=== PATIENT | male | born 1955 | race Caucasian/White ===

== ENCOUNTER 2019-02-01 15:49 | Inpatient (IN) | payer OTHER ==
[~2019-02-01] VITALS: Ht 200.7 cm; Wt 120.8 kg
[2019-02-01] MEDS ORDERED: ASPIRIN CHEWABLE 81 MG TABLET. PO ONE (16:15)
--- NOTE | 2019-02-01 16:35 | EKG ---
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
--- NOTE | 2019-02-01 16:35 | RAD ---
EXAM: Chest, 2 views. HISTORY: Chest pain. Smoking history. COMPARISON: None. FINDINGS: 2 views of the chest are obtained. There are coarse likely chronic interstitial markings within both lungs. There is no consolidation, pleural effusion or pneumothorax. There is suspected bilateral basilar atelectasis or scarring. The heart is normal in size. IMPRESSION: Chronic appearing coarse interstitial markings with suspected basilar atelectasis or scarring. No acute pulmonary finding. Electronically signed by: Wendy Mills MD (02/01/2019 4:32 PM) [place] [id number]
[2019-02-01 17:26] LABS: BASO % 1 % (0-3); EOS # 0.1 x10^3/uL (0.0-0.7); EOS % 1 % (0-3); HEMATOCRIT 42.1 % (39.0-53.0); HEMOGLOBIN 14.2 g/dL (13.0-17.5); LYMPH # 1.3 x10^3/uL (1.0-4.8); LYMPH % 25 % (24-48); MEAN CORPUSCULAR HEMOGLOBIN 32 pg (25-35); MEAN CORPUSCULAR HGB CONC 34 g/dL (31-37); MEAN CORPUSCULAR VOLUME 94 fL (79-100); MONO # 0.4 x10^3/uL (0.0-1.1); MONO % 8 % (0-9); NEUT # 3.5 x10^3uL (1.8-7.7); NEUT % 66 % (31-73); PLATELET COUNT 239 x10^3/uL (140-400); RED BLOOD COUNT 4.46 x10^6/uL (4.30-5.70); RED CELL DISTRIBUTION WIDTH 14.5 % (11.5-14.5); WHITE BLOOD COUNT 5.4 x10^3/uL (4.0-11.0)
[2019-02-01 17:41] LABS: CALCIUM 9.3 mg/dL (8.5-10.1); CREATININE 0.8 mg/dL (0.7-1.3); GFR 97.3; POTASSIUM 4.2 mmol/L (3.5-5.1)
[2019-02-01 17:48] LABS: ALBUMIN 3.8 g/dL (3.4-5.0); TOTAL BILIRUBIN 0.8 mg/dL (0.2-1.0); TOTAL PROTEIN 7.6 g/dL (6.4-8.2)
--- NOTE | 2019-02-01 17:55 | PHYS DOC ---
Past Medical History Past Medical History: Diabetes-Type II, Hypertension, Other Additional Past Medical Histor: BPH Past Surgical History: Appendectomy, Other Additional Past Surgical Histo: cataract surgery, hernia repair Additional Information: quit smoking cigarettes 6 years ago, currently "vapes" Alcohol Use: Occasionally Drug Use: None Adult General Chief Complaint Chief Complaint: CHEST PAIN HPI HPI Patient is a 63 year old male who presents with complaining of abnormal EKG up to not primary care physician office today. Patient states he had a few episodes of substernal aching chest pain shortness of breath without the palpitation, radiation of pain, nausea, dizziness and generalized weakness, cough and fever and chills for the last 1 week and seen by his primary care physician as his routine appointment today and had abnormal EKG and sent to ER. Primary care physician reported that patient had new-onset of atrial flutter patient with rate of 60s with 3 seconds pause in his EKG. And had this same immobilization. He'll restrict airplane problem on December 23 and complaining of mild discomfort feeling in left leg. Patient had history of hypertension, dyslipidemia, diabetes mellitus and family history of coronary artery disease and denies history of COPD and previous arrhythmia. Review of Systems Review of Systems Constitutional: Denies fever or chills [] Eyes: Denies change in visual acuity, redness, or eye pain [] HENT: Denies nasal congestion or sore throat [] Respiratory: Denies cough, reports shortness of breath [] Cardiovascular: No additional information not addressed in HPI [] GI: Denies abdominal pain, nausea, vomiting, bloody stools or diarrhea [] : Denies dysuria or hematuria [] Musculoskeletal: Denies back pain or joint pain [] Integument: Denies rash or skin lesions [] Neurologic: Denies headache, focal weakness or sensory changes [] Endocrine: Denies polyuria or polydipsia [] All other systems were reviewed and found to be within normal limits, except as documented in this note. Current Medications Current Medications Current Medications Medications (Trade) Dose Ordered Sig/Linda Start Time Stop Time Status Last Admin Dose Admin Aspirin (Children'S Aspirin) 324 mg 1X ONCE 02/01/19 16:15 02/01/19 16:53 DC 02/01/19 17:27 243 MG Info (CONTRAST GIVEN -- Rx MONITORING) 1 each PRN DAILY PRN 02/01/19 18:30 02/03/19 18:29 Iohexol (Omnipaque 350 Mg/ml) 100 ml 1X ONCE 02/01/19 18:30 02/01/19 18:31 DC 02/01/19 18:24 100 ML Allergies Allergies Allergies Coded Allergies Type Severity Reaction Last Updated Verified Penicillins Allergy Intermediate 02/01/19 Yes Physical Exam Physical Exam Constitutional: Well developed, well nourished, no acute distress, non-toxic appearance. [] HENT: Normocephalic, atraumatic Eyes: PERRLA, EOMI, conjunctiva normal, no discharge. [] Neck: Normal range of motion, no tenderness, supple, no stridor. [] Cardiovascular: Irregularly irregular rhythm without tachycardia, no murmur [] Lungs & Thorax: Bilateral breath sounds clear to auscultation [] Abdomen: Bowel sounds normal, soft, no tenderness, no masses, no pulsatile masses. [] Skin: Warm, dry, no erythema, no rash. [] Back: No tenderness, no CVA tenderness. [] Extremities: No tenderness, no cyanosis, no clubbing, ROM intact, no edema. [] Neurologic: Alert and oriented X 3, normal motor function, normal sensory function, no focal deficits noted. [] Psychologic: Affect normal, judgement normal, mood normal. [] Current Patient Data Vital Signs Vital Signs Date Time Temp Pulse Resp B/P (MAP) Pulse Ox O2 Delivery O2 Flow Rate FiO2 02/01/19 15:58 97.7 66 20 155/74 (101) 96 Room Air 97.7 Lab Values Laboratory Tests Test 02/01/19 17:17 02/01/19 17:45 White Blood Count 5.4 x10^3/uL (4.0-11.0) Red Blood Count 4.46 x10^6/uL (4.30-5.70) Hemoglobin 14.2 g/dL (13.0-17.5) Hematocrit 42.1 % (39.0-53.0) Mean Corpuscular Volume 94 fL (79-100) Mean Corpuscular Hemoglobin 32 pg (25-35) Mean Corpuscular Hemoglobin Concent 34 g/dL (31-37) Red Cell Distribution Width 14.5 % (11.5-14.5) Platelet Count 239 x10^3/uL (140-400) Neutrophils (%) (Auto) 66 % (31-73) Lymphocytes (%) (Auto) 25 % (24-48) Monocytes (%) (Auto) 8 % (0-9) Eosinophils (%) (Auto) 1 % (0-3) Basophils (%) (Auto) 1 % (0-3) Neutrophils # (Auto) 3.5 x10^3uL (1.8-7.7) Lymphocytes # (Auto) 1.3 x10^3/uL (1.0-4.8) Monocytes # (Auto) 0.4 x10^3/uL (0.0-1.1) Eosinophils # (Auto) 0.1 x10^3/uL (0.0-0.7) Basophils # (Auto) 0.0 x10^3/uL (0.0-0.2) Sodium Level 147 mmol/L (136-145) H Potassium Level 4.2 mmol/L (3.5-5.1) Chloride Level 107 mmol/L (98-107) Carbon Dioxide Level 30 mmol/L (21-32) Anion Gap 10 (6-14) Blood Urea Nitrogen 13 mg/dL (8-26) Creatinine 0.8 mg/dL (0.7-1.3) Estimated GFR (Cockcroft-Gault) 97.3 BUN/Creatinine Ratio 16 (6-20) Glucose Level 120 mg/dL (70-99) H Calcium Level 9.3 mg/dL (8.5-10.1) Magnesium Level 2.0 mg/dL (1.8-2.4) Total Bilirubin 0.8 mg/dL (0.2-1.0) Aspartate Amino Transferase (AST) 28 U/L (15-37) Alanine Aminotransferase (ALT) 46 U/L (16-63) Alkaline Phosphatase 49 U/L (46-116) Creatine Kinase 60 U/L (39-308) Troponin I Quantitative < 0.017 ng/mL (0.000-0.055) YH-Kii-S-Type Natriuretic Peptide 706 pg/mL (0-124) H Total Protein 7.6 g/dL (6.4-8.2) Albumin 3.8 g/dL (3.4-5.0) Albumin/Globulin Ratio 1.0 (1.0-1.7) Lipase 100 U/L (73-393) Prothrombin Time 13.5 SEC (11.7-14.0) Prothrombin Time INR 1.1 (0.8-1.1) D-Dimer (Parisa) 0.80 ug/mlFEU (0.00-0.50) H Laboratory Tests 02/01/19 17:17 Laboratory Tests 02/01/19 17:17 EKG EKG EKG interpreted by me. EKG at 1559 showed atrial fibrillation at rate of 62, nonspecific intraventricular block, poor R-wave progress in anteroseptal leads, no acute ST and T-wave abnormalities. Radiology/Procedures Radiology/Procedures [facility] [address] [place] [address] IMAGING REPORT Signed PATIENT: LESLIE WOMACK ACCOUNT: [id number] : 1955 LOCATION: ER AGE: 63 SEX: M EXAM STATUS: PRE ER ORD. PHYSICIAN: JON BETTS MD REASON: chest pain PROCEDURE: PORTABLE CHEST 1V EXAM: Chest, 2 views. HISTORY: Chest pain. Smoking history. COMPARISON: None. FINDINGS: 2 views of the chest are obtained. There are coarse likely chronic interstitial markings within both lungs. There is no consolidation, pleural effusion or pneumothorax. There is suspected bilateral basilar atelectasis or scarring. The heart is normal in size. IMPRESSION: Chronic appearing coarse interstitial markings with suspected basilar atelectasis or scarring. No acute pulmonary finding. Electronically signed by: Wendy Bean MD (02/01/2019 4:32 PM) [place] [id number] DICTATED and SIGNED BY: WENDY BEAN MD DATE: 02/01/19 1631 Course & Med Decision Making Course & Med Decision Making Pertinent Labs and Imaging studies reviewed. (See chart for details) Evaluation of patient in ER showed 63-year-old male patient with episodes of chest pain or shortness of breath for one week and is sent immobilization. EKG showed atrial fibrillation without acute ST and T-wave abnormalities. Patient had d-dimer of 0.[address] of chest for PE is pending. Dr. Montague accepted admission at 1737. Dragon Disclaimer Dragon Disclaimer This electronic medical record was generated, in whole or in part, using a voice recognition dictation system. Departure Departure Impression: Primary Impression: Acute chest pain Additional Impressions: New onset atrial fibrillation Elevated d-dimer Disposition: ADMITTED INPATIENT (at 1737) Admitting Physician: Valeriano Montague (accepted admission at 1737) Condition: STABLE Referrals: VALERIANO MONTAGUE MD (PCP) Problem Qualifiers JON BETTS MD Feb 01, 2019 17:55
[2019-02-01 18:06] LABS: PROTHROMBIN TIME PATIENT 13.5 SEC (11.7-14.0)
[2019-02-01 18:09] LABS: D-DIMER 0.8 ug/mlFEU (0.00-0.50)
[2019-02-01] MEDS ORDERED: IOHEXOL 350 MG/ML 100 ML VIAL. IV ONE (18:30)
[2019-02-01] MEDS ORDERED: CONTRAST GIVEN. MC PRN (18:30)
[2019-02-01] MEDS ORDERED: ANTI-COAG MONITOR BY PHARMACY. MC PRN (19:00)
[2019-02-01] MEDS ORDERED: HEPARIN for IV BOLUS 10,000 UNIT/10 ML VIAL. IV PRN ×2 (19:00)
[2019-02-01] MEDS ORDERED: HEPARIN for IV BOLUS 10,000 UNIT/10 ML VIAL. IV ONE (19:00)
--- NOTE | 2019-02-01 19:02 | RAD ---
Chest CTA History: Chest pain, shortness of breath Technique: After bolus of intravenous contrast, CT imaging was performed of the chest. Multiplanar reconstruction images to include MIP reconstruction images are submitted. Exposure: One or more of the following individualized dose reduction techniques were utilized for this examination: 1. Automated exposure control 2. Adjustment of the mA and/or kV according to patient size 3. Use of iterative reconstruction technique. Comparison: None Findings: [ ] There is a more focal pulmonary embolism right lower lobe, also some likely tiny foci more peripherally. There are also right upper lobe pulmonary emboli extending to the right main pulmonary artery. There are likely some tiny peripheral left lower lobe pulmonary emboli. There is very small right pleural effusion. There is no pneumothorax. There is reflux of contrast into the hepatic veins. There is some coronary calcification. Thoracic aortic caliber is within normal limits without intraluminal flap. There is right hilar node about 1.3 cm short axis dimension. There is small 0.4 cm right upper lobe nodule axial image 35 series 3. There is hepatic steatosis. Impression: 1. There are pulmonary emboli greater on the right. There is very small right pleural effusion. 2. There is hepatic steatosis. 3. There is coronary calcification. 4. There is nonspecific enlarged right hilar node. 5. There is reflux of contrast into the hepatic veins which is nonspecific, can be associated with heart failure although the heart is not enlarged. FOR INTERNAL CODING PURPOSES Critical result: Findings discussed with VALERIANO HATFIELD at 02/01/2019 6:50 PM. RESULT CODE: (C) Electronically signed by: Luca Medina MD (02/01/2019 6:59 PM) [employer]
[2019-02-01] MEDS: HEPARIN 25,000UTS/500ML PREMIX 500 ML IV PRN (19:15)
[2019-02-01 20:55] VITALS: BP 180/77
[2019-02-01] MEDS ORDERED: AMOX250C PO (21:07)
[2019-02-01] MEDS ORDERED: PIOG15TA42 PO (21:07)
[2019-02-01] MEDS ORDERED: METF10007 PO (21:07)
[2019-02-01] MEDS ORDERED: METR-111 PO (21:07)
[2019-02-01] MEDS ORDERED: OXYB5TAB PO (21:07)
[2019-02-01] MEDS ORDERED: LISI-338 PO (21:07)
[2019-02-01] MEDS ORDERED: ASPI-612 PO (21:07)
[2019-02-01] MEDS ORDERED: GLIP5TAB10 PO (21:07)
[2019-02-01] MEDS ORDERED: SIMV40TA3 PO (21:07)
[2019-02-01] MEDS: AMOXICILLIN 250 MG CAPSULE. PO SCH (21:40)
[2019-02-01] MEDS: metroNIDAZOLE 500 MG TABLET PO SCH (21:40)
[2019-02-01] MEDS: SIMVASTATIN 40 MG TABLET. PO SCH (21:40)
[2019-02-01 22:34] VITALS: BP 131/85
[2019-02-02 02:41] VITALS: BP 122/58
[2019-02-02] MEDS: metroNIDAZOLE 500 MG TABLET PO SCH ×2 (05:49→14:18)
[2019-02-02 07:00] VITALS: BP 122/58
--- NOTE | 2019-02-02 08:28 | PDOC ---
Provider Note Provider Note [id number] VALERIANO AKHTAR MD Feb 02, 2019 08:28
--- NOTE | 2019-02-02 08:49 | HP ---
ADMIT DATE: 02/01/2019 CHIEF COMPLAINT: Irregular heartbeat. HISTORY OF PRESENT ILLNESS: A 63-year-old white male is reasonably well controlled diabetic, seen in the office on the day of admission for routine followup. He was not having shortness of breath, cough, chest pain, leg pain or any other specific symptoms or any presyncopal symptoms. In the office, he was noted to have a mildly irregular heartbeat, which per EKG showed atrial fibrillation with slow ventricular response at 2-3 second pauses at one time during the tracing. He came to the ER and evaluation included a D-dimer, which was elevated, and CT scan was subsequently showed bilateral pulmonary emboli, though he has not been symptomatic of this. He had a recent plane ride 2 weeks ago, but only a 3-hour flight. He has never had any previous cardiovascular problems. PAST MEDICAL HISTORY: Well-controlled type 2 diabetic, on 3 medications. ALLERGIES: PENICILLIN, taken antibiotics for dental work. Now, he has had no cardiovascular events or significant surgeries in the past. 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 FAMILY HISTORY: Unremarkable. REVIEW OF SYSTEMS: No other complaints. OBJECTIVE: ENT: All within normal limits. NECK: No nodes, thyroid enlargement, bruits or masses. LUNGS: Clear. CARDIOVASCULAR: Irregular rate in the 50s. No notable positives are present at this time. ABDOMEN: Soft, benign and nontender. EXTREMITIES: Good pedal and radial pulses. No edema. No joint or skin lesions or leg findings. NEUROLOGIC: Physiologic. ASSESSMENT: 1. Occult atrial fibrillation, slow ventricular response, etiology undetermined. There was a 3-second pause in the office present, but is not symptomatic from this. 2. Bilateral pulmonary emboli. Relationship to the cardiac arrhythmias unclear at this time. Recent plane ride was present. 3. Type 2 diabetes, reasonably well controlled. PLAN: Echo, TSH, heparin for now. We will hold warfarin as he may need a pacemaker if pauses reoccur. VALERIANO AKHTAR MD DR: JYOTHI/jacki JOB#: [id number] / [id number]
[2019-02-02] MEDS ORDERED: ASPIRIN ENTERIC COATED 81 MG TABLET.DR. PO SCH (09:00)
[2019-02-02] MEDS: HEPARIN 25,000UTS/500ML PREMIX 500 ML IV PRN ×2 (09:17→23:17)
--- NOTE | 2019-02-02 09:18 | RAD ---
Bilateral lower extremity venous duplex study 02/02/2019 8:23 AM Clinical History: Acute pulmonary embolus. Evaluate for thrombus or cyst. Comparison: None available Technique: Using a combination of real time ultrasound imaging and color-flow and pulse Doppler imaging techniques along with graded compression and augmentation, duplex evaluation of the deep venous system of the both lower extremities was performed. Multiple images were obtained. Findings: There is no sonographic evidence of deep venous thrombosis involving the visualized deep venous structures of either lower extremity. Impression: No evidence of deep venous thrombosis involving either lower extremity Electronically signed by: Rainer Silva MD (02/02/2019 9:14 AM) [id number]
--- NOTE | 2019-02-02 10:34 | PDOC2 ---
CARDIAC CONSULT DATE OF CONSULT Date of Consult DATE: 02/02/19 TIME: 10:22 REASON FOR CONSULT Reason for Consult: AFIB REFERRING PHYSICIAN Referring Physician: Eddi SOURCE Source: Chart review, Patient HISTORY OF PRESENT ILLNESS HISTORY OF PRESENT ILLNESS This is a pleasant 63 yo male admitted for complains of chest pain and SOA. Reports that he was having this about a week ago just after arriving from [place] from a vacation. Coming back he noted that his LLE was sweollen and tender which got better. He woke one morning and 2 consecutive mornings he had midchest tightness and SOA likely he could not catch his breath both 2 times lasting about 15 minutes which have not recurred. He has had LLE DVT about 20 yrs ago and his father also was on lifelong anticoagulation due to PE. He has not been tested for clotting disorders and not known on his father. He was then noted with PE. No reported hx of AFIB but no symptoms as well. No palpitations , dizziness, passing out. Denies any recent surgeries, MVA and no cancer. Denies any nausea diaphoresis and no recent infection. He takes meds for HTN, DM and no BB nor CCB in his regimen. No recreational drugs but has been vaping for about 5 yrs since quitting smoking at 2ppd for about 30 yrs. No prior hx of CAD, CVA or any arrhythmias. PAST MEDICAL HISTORY Cardiovascular: HTN, Hyperlipidemia Pulmonary: No pertinent hx CENTRAL NERVOUS SYSTEM: Other (No pertinent history) GI: No pertinent hx Heme/Onc: Other (LE DVT) Psych: No pertinent hx Musculoskeletal: Osteoarthritis Rheumatologic: No pertinent hx Infectious disease: No pertinent hx ENT: No pertinent hx Renal/: No pertinent hx Endocrine: Diabetes (2) Dermatology: No pertinent hx PAST SURGICAL HISTORY Past Surgical History: Appendectomy, Cataract Removal, Hernia Repair (left groin and umbilical) FAMILY HISTORY Family History: Other (father with PE) SOCIAL HISTORY Smoke: <1 pack per day (vaping started 5 yrs ago, otherwise 60 pk yr) ALCOHOL: none Drugs: None Lives: with Family CURRENT MEDICATIONS CURRENT MEDICATIONS Current Medications Medications (Trade) Dose Ordered Sig/Linda Route PRN Reason Start Time Stop Time Status Last Admin Dose Admin Aspirin (Children'S Aspirin) 324 mg 1X ONCE PO 02/01/19 16:15 02/01/19 16:53 DC 02/01/19 17:27 Iohexol (Omnipaque 350 Mg/ml) 100 ml 1X ONCE IV 02/01/19 18:30 02/01/19 18:31 DC 02/01/19 18:24 Heparin Sodium (Porcine) (Heparin Sodium) 9,850 unit 1X ONCE IV 02/01/19 19:00 02/01/19 19:01 DC 02/01/19 19:13 Heparin Sodium/ Dextrose 500 ml @ 0 mls/hr CONT PRN IV SEE I/O RECORD 02/01/19 19:00 02/02/19 09:17 Amoxicillin (Amoxil) 250 mg TID PO 02/01/19 22:00 02/02/19 14:01 02/01/19 21:40 Metronidazole (Flagyl) 250 mg Q8HRS PO 02/01/19 22:00 02/02/19 14:01 02/02/19 05:49 Simvastatin (Zocor) 40 mg QHS PO 02/01/19 22:00 02/01/19 21:40 ALLERGIES ALLERGIES: Coded Allergies: Penicillins (Verified Allergy, Intermediate, 02/01/19) ROS Review of System 14 point ROS evaluated with pertinent positives noted per HPI PHYSICAL EXAM General: Alert, Oriented X3, Cooperative, No acute distress HEENT: Atraumatic, Mucous membr. moist/pink Lungs: Clear to auscultation, Normal air movement Heart: Other (AFIB) Abdomen: Soft, No tenderness Extremities: No cyanosis, No edema Skin: No breakdown, No significant lesion Neuro: Normal speech, Sensation intact Psych/Mental Status: Mental status NL, Mood NL MUSCULOSKELETAL: Osteoarthritic changes both hands VITALS VITALS Vital Signs Date Time Temp Pulse Resp B/P (MAP) Pulse Ox O2 Delivery O2 Flow Rate FiO2 02/02/19 08:00 Room Air 02/02/19 07:00 97.7 48 18 122/58 (79) 98 97.7 LABS Lab: Laboratory Tests Test 02/01/19 17:17 02/01/19 17:45 02/01/19 20:50 02/02/19 01:00 White Blood Count 5.4 x10^3/uL (4.0-11.0) Red Blood Count 4.46 x10^6/uL (4.30-5.70) Hemoglobin 14.2 g/dL (13.0-17.5) Hematocrit 42.1 % (39.0-53.0) Mean Corpuscular Volume 94 fL (79-100) Mean Corpuscular Hemoglobin 32 pg (25-35) Mean Corpuscular Hemoglobin Concent 34 g/dL (31-37) Red Cell Distribution Width 14.5 % (11.5-14.5) Platelet Count 239 x10^3/uL (140-400) Neutrophils (%) (Auto) 66 % (31-73) Lymphocytes (%) (Auto) 25 % (24-48) Monocytes (%) (Auto) 8 % (0-9) Eosinophils (%) (Auto) 1 % (0-3) Basophils (%) (Auto) 1 % (0-3) Neutrophils # (Auto) 3.5 x10^3uL (1.8-7.7) Lymphocytes # (Auto) 1.3 x10^3/uL (1.0-4.8) Monocytes # (Auto) 0.4 x10^3/uL (0.0-1.1) Eosinophils # (Auto) 0.1 x10^3/uL (0.0-0.7) Basophils # (Auto) 0.0 x10^3/uL (0.0-0.2) Sodium Level 147 mmol/L (136-145) Potassium Level 4.2 mmol/L (3.5-5.1) Chloride Level 107 mmol/L (98-107) Carbon Dioxide Level 30 mmol/L (21-32) Anion Gap 10 (6-14) Blood Urea Nitrogen 13 mg/dL (8-26) Creatinine 0.8 mg/dL (0.7-1.3) Estimated GFR (Cockcroft-Gault) 97.3 BUN/Creatinine Ratio 16 (6-20) Glucose Level 120 mg/dL (70-99) Calcium Level 9.3 mg/dL (8.5-10.1) Magnesium Level 2.0 mg/dL (1.8-2.4) Total Bilirubin 0.8 mg/dL (0.2-1.0) Aspartate Amino Transf (AST/SGOT) 28 U/L (15-37) Alanine Aminotransferase (ALT/SGPT) 46 U/L (16-63) Alkaline Phosphatase 49 U/L (46-116) Creatine Kinase 60 U/L (39-308) Troponin I Quantitative < 0.017 ng/mL (0.000-0.055) < 0.017 ng/mL (0.000-0.055) < 0.017 ng/mL (0.000-0.055) TB-Ojn-H-Type Natriuretic Peptide 706 pg/mL (0-124) Total Protein 7.6 g/dL (6.4-8.2) Albumin 3.8 g/dL (3.4-5.0) Albumin/Globulin Ratio 1.0 (1.0-1.7) Lipase 100 U/L (73-393) Prothrombin Time 13.5 SEC (11.7-14.0) Prothromb Time International Ratio 1.1 (0.8-1.1) D-Dimer (Parisa) 0.80 ug/mlFEU (0.00-0.50) Heparin Anti-Xa Act, Unfractionated 0.79 IU/mL (0.30-0.70) Thyroid Stimulating Hormone (TSH) 3.769 uIU/mL (0.358-3.74) Test 02/02/19 07:17 Heparin Anti-Xa Act, Unfractionated 0.59 IU/mL (0.30-0.70) ASSESSMENT/PLAN ASSESSMENT/PLAN 1. Bilateral acute PE: per PCP 2. Slow AFIB and asymptomatic: likely induced by PE. Lowest at 40 no blocks or pauses. 3. HTN: controlled 4. DM2/HLP 5. Hx of LE DVT and Father had hx of PE and life long anticoagulation 6. LE varicosities: oprevious unilateral LLE swelling, possible from PE but sono revealed none so far. 7. 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 Unknown vaping ingredients. Recommendations 1. will need coag studies, defer to PCP. Anticoagulation therapy per PCP 2. TTE today. Avoid AV kailash blocking agents. Will plan for MCOT 3. If AFIB persist as an outpt and depending on the result of MCOT then will consider outpt cardioversion MEI CALLES APRN Feb 02, 2019 10:34
[2019-02-02] MEDS: glipiZIDE 5 MG TABLET PO SCH (10:46)
[2019-02-02] MEDS: OXYBUTYNIN CHLORIDE 5 MG TABLET PO SCH (10:46)
[2019-02-02] MEDS: LISINOPRIL 5 MG TABLET. PO SCH (10:46)
[2019-02-02] MEDS: AMOXICILLIN 250 MG CAPSULE. PO SCH ×2 (10:46→14:18)
[2019-02-02] MEDS: PIOGLITAZONE 15 MG TABLET. PO SCH (10:46)
[2019-02-02 11:00] VITALS: BP 128/57
--- NOTE | 2019-02-02 12:35 | NUR ---
SS following for discharge planning. SS reviewed pt chart. Pt is from home with spouse and is currently on room air. No discharge needs noted at this time. SS will continue to follow for pending discharge needs.
--- NOTE | 2019-02-02 14:29 | CARD ---
MR#: [id number] Date of Study: 02/02/2019 Ordering Physician: VALERIANO AKHTAR, Referring Physician: VALERIANO AKHTAR Tech: Imani Sanderson RDCS APPROVED REPORT EXAM: Two-dimensional and M-mode echocardiogram with Doppler and color Doppler. Other Information Quality : Technically LimitedHR: 44bpm Rhythm : BradycardiaTechnically limited study due to body habitus. INDICATION Chest Pain 2D DIMENSIONS RVDd4.0 (2.9-3.5cm)Left Atrium(2D)4.6 (1.6-4.0cm) IVSd1.3 (0.7-1.1cm)Aortic Root(2D)3.6 (2.0-3.7cm) LVDd5.8 (3.9-5.9cm)LVOT Diameter2.5 (1.8-2.4cm) PWd1.1 (0.7-1.1cm)LVDs4.3 (2.5-4.0cm) FS (%) 25.5 %SV81.7 ml LVEF(%)50.0 (>50%) M-Mode DIMENSIONS Left Atrium(MM)4.76 (2.5-4.0cm)Aortic Root3.65 (2.2-3.7cm) Aortic Valve AoV Peak Matt.113.7cm/sAoV VTI18.0cm AO Peak GR.5.2mmHgLVOT Peak Matt.67.5cm/s AO Mean GR.2mmHgAVA (VMAX)2.95cm2 PRIMITIVO (VTI)3.00cm2 Mitral Valve MV E Vsjgiwxt97.5cm/sMV DECEL EMLF185aq MV A Odsjxdlv08.0cm/sE/A Ratio3.7 Pulmonary Valve PV Peak Tagmuqtc324.3cm/s Tricuspid Valve TR P. Rpktmjof313pr/sRAP YVWDJJOB8kwRk TR Peak Gr.97baNkTZYC61hgGc LEFT VENTRICLE The left ventricle is normal size. There is mild concentric left ventricular hypertrophy. Left ventri lisy systolic function is normal. The Ejection Fraction is 55-60%. There is normal LV segmental wall m otion. RIGHT VENTRICLE The right ventricle is mildly dilated. There is normal right ventricular wall thickness. Systolic fun ction is borderline reduced. ATRIA The left atrium is mildly dilated. The right atrium is mildly dilated. The interatrial septum is inta ct with no evidence for an atrial septal defect or patent foramen ovale as noted on 2-D or Doppler im aging. AORTIC VALVE The non coronary cusp is calcified. The aortic valve is trileaflet. Doppler and Color Flow revealed n o significant aortic regurgitation. There is no significant aortic valvular stenosis. MITRAL VALVE The mitral valve is normal in structure and function. There is no evidence of mitral valve prolapse. There is no mitral valve stenosis. Doppler and Color-flow revealed trace mitral regurgitation. TRICUSPID VALVE The tricuspid valve is normal in structure and function. Doppler and Color Flow revealed mild tricusp id regurgitation. There is moderate pulmonary hypertension. The PA pressure was estimated at 42 mmHg. There is no tricuspid valve prolapse or vegetation. There is no tricuspid valve stenosis. PULMONIC VALVE The pulmonary valve is normal in structure and function. Doppler and Color Flow revealed mild pulmoni c valvular regurgitation. There is no pulmonic valvular stenosis. GREAT VESSELS The aortic root is mildly enlarged. The ascending aorta is normal in size. The IVC is dilated and col lapses >50% with inspiration. PERICARDIAL EFFUSION There is no evidence of significant pericardial effusion. Critical Notification Critical Value: No <Conclusion> Left ventricle systolic function is normal. The Ejection Fraction is 55-60%. There is normal LV segmental wall motion. Trace mitral regurgitation. Mild tricuspid regurgitation. The PA pressure was estimated at 42 mmHg. There is no evidence of significant pericardial effusion. Signed by : Virgil Paris, Electronically Approved : 02/02/2019 14:29:01
[2019-02-02 15:00] VITALS: BP 125/56
[2019-02-02 19:15] VITALS: BP 141/67
[2019-02-02] MEDS: SIMVASTATIN 40 MG TABLET. PO SCH (20:45)
[2019-02-02 23:29] VITALS: BP 127/57
[2019-02-03 03:25] VITALS: BP 111/57
[2019-02-03 05:22] LABS: HEMATOCRIT 38.4 % (39.0-53.0); RED BLOOD COUNT 4.07 x10^6/uL (4.30-5.70); RED CELL DISTRIBUTION WIDTH 14.5 % (11.5-14.5); WHITE BLOOD COUNT 4.9 x10^3/uL (4.0-11.0)
[2019-02-03 07:00] VITALS: BP 149/79
[2019-02-03] MEDS ORDERED: RIVAROXABAN 15 MG TABLET. PO SCH (08:00)
--- NOTE | 2019-02-03 08:02 | PDOC ---
Provider Note Provider Note feels well- rate af 40-50s, no more pauses- echo fine, no ms- labs ok- will start xarelto and see if covered per insurance, otherwise lovenox/warf- leg sono clear- will do 6 months anticoag unless af persists, then hypercoag labs when off meds- consider op monitor re concern of bradyarrthymias but is asymptomatic VALERIANO AKHTAR MD Feb 03, 2019 08:02
[2019-02-03] MEDS: PIOGLITAZONE 15 MG TABLET. PO SCH (08:29)
[2019-02-03] MEDS: OXYBUTYNIN CHLORIDE 5 MG TABLET PO SCH (08:29)
[2019-02-03] MEDS: glipiZIDE 5 MG TABLET PO SCH (08:29)
[2019-02-03] MEDS: LISINOPRIL 5 MG TABLET. PO SCH (08:30)
--- NOTE | 2019-02-03 10:51 | NUR ---
Heart rate between 36-55 on the monitor. Cardiology called spoke with Elke, no new orders at this time. Will continue to closely monitor. Addendum: 02/03/19 at 1054 by JALEEL SAVAGE RN Patient ambulated around unit heart rate increased to 63
[2019-02-03 11:00] VITALS: BP 112/63
--- NOTE | 2019-02-03 12:28 | PDOC ---
CARDIO Progress Notes Date and Time Date of Service 02/03/19 Time of Evaluation 1210 Subjective Subjective: No Chest Pain, No shortness of breath, No Palpitations Vitals Vitals Vital Signs Date Time Temp Pulse Resp B/P (MAP) Pulse Ox O2 Delivery O2 Flow Rate FiO2 02/03/19 11:00 97.9 39 18 112/63 (79) 97 Room Air 97.9 Weight Weight [ ] Input and Output Intake and Output Intake and Output 02/03/19 07:00 Intake Total 2280 ml Output Total 1200 ml Balance 1080 ml Intake Oral 1780 ml IV Total 500 ml Output Urine Total 1200 ml # Voids 5 Laboratory Labs Laboratory Tests Test 02/02/19 13:00 02/03/19 04:30 Heparin Anti-Xa Act, Unfractionated 0.50 IU/mL (0.30-0.70) 0.43 IU/mL (0.30-0.70) White Blood Count 4.9 x10^3/uL (4.0-11.0) Red Blood Count 4.07 x10^6/uL (4.30-5.70) Hemoglobin 13.0 g/dL (13.0-17.5) Hematocrit 38.4 % (39.0-53.0) Mean Corpuscular Volume 94 fL (79-100) Mean Corpuscular Hemoglobin 32 pg (25-35) Mean Corpuscular Hemoglobin Concent 34 g/dL (31-37) Red Cell Distribution Width 14.5 % (11.5-14.5) Platelet Count 226 x10^3/uL (140-400) Physical Exam HEENT: Neck Supple W Full Motion LUNGS: Clear to Auscultation Heart: S1S2, irregularly irregular Abdomen: Soft N/T Extremities: No Calf Tenderness Neurology: alert, oriented, follow commands Assessment Assessment 1. Bilateral acute PE: on Xarelto. per PCP 2. Slow AFIB, (new) asymptomatic: likely induced by PE. Lowest at 40 no blocks or pauses. 3. HTN: controlled 4. DM2/HLP 5. Hx of LE DVT and Father had hx of PE and life long anticoagulation Recommendations Avoid AV kailash blocking agents. MCOT x1 week. Placed on patient prior to DC- instructions provided Continue NOAC F/u in our office with Dr. Barboza in 2 weeks as scheduled. SEVERINO WIGGINS APRN Feb 03, 2019 12:28
[2019-02-03] MEDS ORDERED: RIVA15TA PO (15:16)
[2019-02-03] MEDS ORDERED: ASPI-630 PO (15:17)
--- NOTE | 2019-02-03 17:04 | NUR ---
Discharge: Teaching verbal and written. Reviewed medications, follow-up, event monitor, bradycardia, atrial fibrillation, ect. Patient and verbalized understanding. Prescription for Xarelto called into pharmacy per Dr. Montague. Outpatient event monitor put on by Elke. IV removed without complications, catheter tip in-tact. All belongings with patient. Patient assisted off of unit via wheelchair accompanied by MARCELO
--- NOTE | 2019-02-03 22:00 | DS ---
DATE OF DISCHARGE: 02/03/2019 HOSPITAL SUMMARY: A 63-year-old white male was found to be in atrial fibrillation in my office and came to the ER where he described some dyspnea and chest pain at times. Lower extremity Dopplers were negative for DVT, but he had bilateral pulmonary emboli, right greater than left on CT angio. All blood work was unremarkable including troponins and TSH was borderline elevated at 4.3. He had a slow heart rate with his atrial fibrillation and no sinus pauses has had been noted in the office. Echocardiogram showed excellent ejection fraction of 60%, no sign of mitral stenosis, pericardial fluid or any lesions related to atrial fibrillation. He was treated with IV heparin initially and then Xarelto was started and he will be discharged and followed as an outpatient at this time. FINAL DIAGNOSES: 1. Bilateral pulmonary emboli. 2. Atrial fibrillation with slow ventricular response, duration and definite etiology undetermined. 3. Subclinical hypothyroidism. OPERATIONS, PROCEDURES, COMPLICATIONS: None. CONSULTATIONS: Dr. Sharp's group. DISPOSITION: Xarelto 15 mg twice a day for 3 more weeks, then 20 mg once a day. We will treat him for 6 months unless he remains in atrial fibrillation. Etiology of atrial fibrillation is unknown, but may be related to recent pulmonary emboli and may resolve over time as he has not been a problem before. Once he is off anticoagulants, we will do hypercoagulable workup as there is apparently a family history in his father of similar problem of unknown etiology. Activity as tolerated. Regular diet and same home medicines and office followup with Dr. Montague in 1 week. Any presyncopal type events would warrant an event monitor to rule out the possibility of significant bradyarrhythmias and the need for possible pacemaker placement. VALERIANO MONTAGUE MD DR: [email or web address]/[email or web address] JOB#: [id number] / [id number]
== END 2019-02-03 15:50 | disposition home or self-care (01) | DRG 176 ==
LOC: ER 15:49 → 2 SOUTH 17:38
PROVIDERS: ADMIT Family Medicine; ATTEND Family Medicine
DX: I26.99 Other pulmonary embolism without acute cor pulmonale (principal); I48.92 Unspecified atrial flutter; I48.91 Unspecified atrial fibrillation; E03.9 Hypothyroidism, unspecified; E11.9 Type 2 diabetes mellitus without complications; E78.5 Hyperlipidemia, unspecified; I10 Essential (primary) hypertension; N40.0 Benign prostatic hyperplasia without lower urinary tract symptoms; R79.1 Abnormal coagulation profile; Z79.01 Long term (current) use of anticoagulants; Z82.49 Family history of ischemic heart disease and other diseases of the circulatory system; Z87.891 Personal history of nicotine dependence; Z90.49 Acquired absence of other specified parts of digestive tract; Z86.718 Personal history of other venous thrombosis and embolism; M19.90 Unspecified osteoarthritis, unspecified site
CPT/HCPCS: 36415; 71045; 71275; 80053; 82550; 83690; 83735; 83880; 84443; 84484; 85025; 85027; 85379; 85520; 85610; 93005; 93306; 93970; 96374; J1644; Q9967; 99285-25